=== PATIENT | female | born 1950 | race Caucasian/White ===

== ENCOUNTER 2019-11-06 05:19 | Day surgery (SDC) | payer MEDICARE ==
[2019-10-30 15:06] LABS: BASOPHILS % (AUTO) 0.6 % (0-1); EOSINOPHILS # (AUTO) 0.4 X10'3 (0-0.9); EOSINOPHILS % (AUTO) 6.3 % (0-6); LYMPHOCYTES # (AUTO) 1.5 X10'3 (1.1-4.8); LYMPHOCYTES % (AUTO) 21.9 % (21-51); MEAN CORPUSCULAR HGB CONC 33.2 g/dL (33.0-36.5); MEAN CORPUSCULAR VOLUME 90.5 FL (78-98); MEAN PLATELET VOLUME 7.1 FL (7.4-10.4); MONOCYTES # (AUTO) 0.5 X10'3 (0-0.9); NEUTROPHILS # (AUTO) 4.5 X10'3 (1.8-7.7); NEUTROPHILS % (AUTO) 64.2 % (42-75); PRE OP HEMATOCRIT 40.7 % (35.0-45.0); PRE OP HEMOGLOBIN 13.5 g/dL (12.0-16.0); PRE OP PLATELET COUNT 272 X10'3 (140-440); RED CELL DISTRIBUTION WIDTH 14.4 % (11.5-14.5)
[2019-10-30 15:16] LABS: ALBUMIN 3.6 G/DL (3.4-5.0); ALBUMIN/GLOBULIN RATIO 1.1 (1.1-1.5); ALKALINE PHOSPHATASE 82 IU/L (46-116); BLOOD UREA NITROGEN 13 MG/DL (7-18); BUN/CREATININE RATIO 13.4 (6.6-38.0); CALCIUM 9.1 MG/DL (8.5-10.1); CHLORIDE 105 MMOL/L (99-107); CREATININE 0.97 MG/DL (0.40-0.90); PRE OP ALT 32 U/L (30-65); PRE OP ANION GAP 7 (8-16); PRE OP AST 18 U/L (10-37); PRE OP BILIRUB, TOTAL 0.4 MG/DL (0.0-1.0); PRE OP GLUCOSE 108 MG/DL (70-104); PRE OP SODIUM 141 MMOL/L (135-145); TOTAL CARBON DIOXIDE 29.3 MMOL/L (24-32); eGFR 57 ML/MIN
[2019-10-30 15:19] LABS: PRE OP POTASSIUM 3.3 MMOL/L (3.4-5.1)
[~2019-11-06] VITALS: Ht 165.1 cm; Wt 97.7 kg
[2019-11-06] VITALS (17 sets, daily range): BP systolic 102–136; BP diastolic 60–72
[~2019-11-06 05:19] MED LIST: ALPR-624 PO; ASCO-321 PO; CHOL400T57 PO; CYAN100T46 PO; LIDOcaine 2% (20mg/ml) 5ml vial ONE; PREVCR VG; dexamethasone sod phosphate 4mg/ml inj. ONE; fentaNYL/PF 50MCG/1 ML 2ML syringe ONE; glycopyrrolate 0.2mg/ml inj ONE; meperidine/PF 25mg/ml syringe ONE; neostigmine methylsulfate 1 MG/ML 10ml vial ONE; ondansetron/PF 4mg/2ml inj ONE; propofol inj 20 ML IV ONE; ringers solution, lacted 1,000 ML IV SCH; rocuronium 10mg/ml inj IV ONE
[2019-11-06] MEDS ORDERED: famotidine 20mg tablet PO ONE ×2 (05:30→06:10)
[2019-11-06] MEDS ORDERED: clindamycin-Cleocin 900mg/D5W 50 ML IV ONE (05:30)
[2019-11-06] MEDS ORDERED: BUPIVAcaine/PF 2.5mg/ml (0.25%) 10ml vial ONE (07:08)
[2019-11-06] MEDS ORDERED: BUPIVACAINE liposomal/PF 13.3 MG/ML vial IM ONE (07:08)
[2019-11-06] MEDS ORDERED: fentaNYL/PF 50MCG/1 ML 2ML syringe ONE (07:13)
[2019-11-06] MEDS ORDERED: midazolam 2 mg/2 ml injection ONE (07:13)
[2019-11-06] MEDS ORDERED: dexamethasone sod phosphate 4mg/ml inj. ONE (07:21)
[2019-11-06] MEDS ORDERED: propofol inj 20 ML IV ONE (07:21)
[2019-11-06] MEDS ORDERED: ondansetron/PF 4mg/2ml inj ONE (07:21)
[2019-11-06] MEDS ORDERED: glycopyrrolate 0.2mg/ml inj ONE (07:21)
[2019-11-06] MEDS ORDERED: LIDOcaine 2% (20mg/ml) 5ml vial ONE (07:21)
[2019-11-06] MEDS ORDERED: rocuronium 10mg/ml inj IV ONE (07:21)
[2019-11-06] MEDS ORDERED: neostigmine methylsulfate 1 MG/ML 10ml vial ONE (07:21)
[2019-11-06] MEDS ORDERED: ringers solution, lacted 1,000 ML IV SCH (07:38)
[2019-11-06] MEDS ORDERED: hydrALAZINE 20mg/ml inj. IV PRN (07:40)
[2019-11-06] MEDS ORDERED: morphine 4 MG/ML inj SYRINge IV PRN ×2 (07:40)
[2019-11-06] MEDS ORDERED: labetalol 20mg/4ml (5mg/ml) syringe IV PRN (07:40)
[2019-11-06] MEDS ORDERED: ondansetron/PF 4mg/2ml inj IV PRN (07:40)
[2019-11-06] MEDS ORDERED: morphine 2 MG/ML inj. syringe IV PRN ×2 (07:40)
[2019-11-06] MEDS ORDERED: LIDOcaine 1% 30ml preserv. free vial ONE (07:50)
[2019-11-06] MEDS ORDERED: BUPIVAcaine/PF 2.5 mg/ml (0.25%) 30ml vial ONE (07:51)
--- NOTE | 2019-11-06 08:40 | NUR ---
Received from OR via [facility], accompanied by Anesthesiologist DR Riley and report given by Anesthesiolgist. PATIENT STILL SLEEPY NOT RESPONSIVE, DENIES PAIN, V/S WNL, 20G PIV L WRIST, SCD ON, BANDAIDS TO LAP SIGHTS OF ABDOMEN CDI. Abdomen binder in place.
[2019-11-06] MEDS ORDERED: oxyCODONE/APAP 5-325mg tablet PO PRN (08:55)
--- NOTE | 2019-11-06 11:40 | NUR ---
Pt has tolerated fluids, ambulated with walker x3, unable to void. Oriented, occasionally sleepy but very easy to arouse. Report was given to Valarie Castro RN and patient transported to PAS unit to wait for her to be able to successfully void.
--- NOTE | 2019-11-06 11:40 | NUR ---
rec'd pt from pacu. pt alert and oriented, pain tolerable. vss. tolerating liquids.
--- NOTE | 2019-11-06 13:25 | NUR ---
Pt was dc'd to home safely via w/c. all belongings w/ pt including glasses. Pt tolerated lemon alturas soda and voided successfully. Instuctions reviewed w/ pt and pt verbalized understanding. Pt back pack w/ pt upon dc to home. Pt dc'd safely to personal vehicle being driven by her sister.
== END 2019-11-06 13:25 | disposition home or self-care (01) ==
LOC: PAS 05:19
PROVIDERS: ATTEND Surgery
DX: K42.9 Umbilical hernia without obstruction or gangrene (principal); N18.3 Chronic kidney disease, stage 3 (moderate); E66.9 Obesity, unspecified; Z68.35 Body mass index [BMI] 35.0-35.9, adult; Z11.59 Encounter for screening for other viral diseases; Z79.899 Other long term (current) drug therapy; Z98.890 Other specified postprocedural states; Z88.0 Allergy status to penicillin; Z83.3 Family history of diabetes mellitus; Z80.0 Family history of malignant neoplasm of digestive organs; Z81.8 Family history of other mental and behavioral disorders; Z84.1 Family history of disorders of kidney and ureter
CPT/HCPCS: 36415; 49652; 64488; 80053; 82948; 85025; 93005; C1781; C9290; J1100; J2001; J2250; J2270; J2405; J2704; J2710; J3010; J3490; J7120; U0003; A4215; A4618; J2175